=== PATIENT | female | born 1960 | race Hispanic/Latino ===

== ENCOUNTER → 2019-06-13 | Outpatient (CLI) | payer BC ==
[~2019-06-13] MED LIST: LEVO75TA10 PO; LOSA1TAB42 PO; METF-444 PO; METR-172 PO; ONDA4SOL2 PO
== END | disposition home or self-care (01) ==
LOC: RAH 12:35
PROVIDERS: ATTEND Family Medicine
DX: M17.11 Unilateral primary osteoarthritis, right knee (principal); M43.16 Spondylolisthesis, lumbar region; M48.061 Spinal stenosis, lumbar region without neurogenic claudication
CPT/HCPCS: 72100; 73562

== ENCOUNTER → 2019-06-27 | Outpatient (CLI) | payer BC | LOC: RAH 13:26 | PROVIDERS: ATTEND Family Medicine | DX: E04.9 Nontoxic goiter, unspecified (principal) | CPT/HCPCS: 76536 ==

== ENCOUNTER 2020-10-13 20:29 | Emergency (ER) | payer BC ==
[~2020-10-13] VITALS: Ht 162.6 cm; Wt 79.4 kg
[2020-10-13] MEDS ORDERED: ONDANSETRON ODT 4MG TAB SL ONE (21:30)
[2020-10-13] MEDS ORDERED: DICYCLOMINE 20MG (10MG/ML) AMP IM ONE (21:30)
[2020-10-13] MEDS ORDERED: ACETAMINOPHEN WITH CODEINE 1 TAB TAB PO ONE (21:30)
[2020-10-13 22:12] LABS: ABG BASE EXCESS 4.5 mmol/L (-2.0-3.0); ABG HCO3 28.5 mmol/L (21.0-28.0); ABG OXYGEN SATURATION 96.4 % (95.0-99.0); ABG PCO2 40 mmHg (32-45)
[2020-10-13 22:21] LABS: BASOPHILS % (AUTO) 0.3 % (0.0-5.0); EOSINOPHILS % (AUTO) 1.3 % (0.0-8.0); HEMATOCRIT 38.7 % (36-48); LYMPHOCYTES % (AUTO) 26.9 % (21.0-51.0); MEAN CORPUSCULAR HEMOGLOBIN 30.3 pg (27.0-33.0); MEAN CORPUSCULAR HGB CONC 33.1 g/dL (32.0-36.0); MEAN CORPUSCULAR VOLUME 91.5 fL (79-99); MONOCYTES % (AUTO) 5.7 % (3.0-13.0); NEUTROPHILS % (AUTO) 65.1 % (40.0-77.0); PLATELET COUNT (AUTO) 308 K/uL (130-400); RED BLOOD CELL COUNT(AUTO) 4.23 MIL/uL (4.00-5.50); RED CELL DISTRIBUTION WIDTH 12.9 % (11.0-15.5); WHITE BLOOD COUNT (AUTO) 11.4 K/uL (4.8-10.8)
[2020-10-13] MEDS ORDERED: CEFTRIAXONE 1G VIAL IM ONE (22:30)
[2020-10-13] MEDS ORDERED: AZITHROMYCIN 250 MG TABLET PO ONE (22:30)
[2020-10-13 22:34] LABS: CREATININE 0.8 mg/dL (0.5-1.5)
[2020-10-13 22:38] LABS: BILIRUBIN,TOTAL 0.2 mg/dL (0.2-1.0); TOTAL PROTEIN, SERUM 7.4 g/dL (6.0-8.3)
[2020-10-13] MEDS ORDERED: D-ME1POW16 PO (23:03)
[2020-10-13 23:40] VITALS: BP 137/77
== END 2020-10-13 23:46 | disposition home or self-care (01) ==
LOC: EDH 20:29
DX: U07.1 COVID-19 (principal); J12.82 Pneumonia due to coronavirus disease 2019; I10 Essential (primary) hypertension; E11.9 Type 2 diabetes mellitus without complications; Z79.84 Long term (current) use of oral hypoglycemic drugs; Z79.899 Other long term (current) drug therapy
CPT/HCPCS: 36415; 36600; 71045; 80053; 82803; 83690; 85025; 96372 ×2; 99284; J0500; J0696